=== PATIENT | female | born 1955 | race Caucasian/White ===

== ENCOUNTER → 2017-03-23 | Day surgery (SDC) | payer OTHER ==
[~2017-03-23] MED LIST: ALEV220T14 PO; ASCO100029 PO; BIOT300T PO; BUPR150XL PO; CHRO400T PO; COEN400C PO; FISH500C PO; HYOS0.1252 PO; LEXA10TA PO; MEPERIDINE HCL 25 MG/ML VIAL IV ONE; PROPOFOL 200 MG/20 ML AMP IV ONE; SIMV20TA PO; SODIUM CHLORIDE 0.9% 10 ML VIAL ONE; SUCR1TAB PO; VENTAER INH; VITA10002 PO; VITA200C3 PO
--- NOTE | 2017-03-26 12:14 | M6 ---
cc: SHINE CUADRA M.D. DATE: 03/23/2017. DATE OF : 1955 PROCEDURE PERFORMED: Fluoroscopically-guided injection neurolytic substance bilateral sacroiliac joints (3% phenol). DESCRIPTION OF THE PROCEDURE IN DETAIL: History and physical was completed and signed. Consent was signed. Procedure site was marked. Medications were listed and reconciled. Pain score was recorded. Allergies were noted. Time out was taken. Fluoroscopy time was recorded where applicable. Sedation was administered or directed by Dr. Cuadra. The patient was given oxygen. The patient was monitored by a registered nurse. Total procedure time was greater than 15 minutes. IV was started, blood pressure cuff, pulse oximeter and EKG were applied. The patient was placed in the prone position on a Ulisses table and sedated with small amounts of propofol titrated to effect. Vital signs were monitored and remained stable throughout the procedure. The sacral area was prepped with alcohol and 10% Betadine solution and draped with sterile drapes. Fluoroscopy was used shooting from medial to lateral to clearly visualize the posterior joint line of the bilateral sacroiliac joints. Separate sterile 5-inch 22-gauge spinal needles were advanced into these joints under fluoroscopic guidance. There was negative aspiration for blood or any other type of fluid and the patient was given 1 mL of 3% phenol at each location. Following this, she was taken to the recovery room with stable vital signs neurologically intact. W. MD BRAN Neely/PRANEETH /10:27 AM /12:11 PM
== END | disposition home or self-care (01) ==
LOC: PHSDC 09:01
PROVIDERS: ATTEND Pain Medicine Interventional Pain Medicine
DX: M54.5 Low back pain (principal)
CPT/HCPCS: 64640; 99152; J2175